=== PATIENT | female | born 1990 | race Caucasian/White ===

== ENCOUNTER → 2016-07-25 | Outpatient (REF) ==
[~2016-07-25] MED LIST: MOTRIN 800800 MG/TAB PO; PERCOCET 325 MG1 TA2 PO; PRENATAL1 TA1 PO; SLOW FE45 MG PO
== END ==
LOC: WSOH 09:48
DX: Z02.89 Encounter for other administrative examinations (principal)

== ENCOUNTER → 2017-01-31 | Outpatient (REF) | LOC: WSOH 12:43 | DX: Z02.89 Encounter for other administrative examinations (principal) ==

== ENCOUNTER → 2017-01-31 | Outpatient (REF) | LOC: WSOH 12:43 | DX: Z00.00 Encounter for general adult medical examination without abnormal findings (principal) ==

== ENCOUNTER 2018-01-02 07:32 | Inpatient (IN) | payer BC ==
[~2018-01-02] VITALS: Ht 177.8 cm; Wt 95.0 kg
[2018-01-02] VITALS (45 sets, daily range): BP systolic 98–135; BP diastolic 50–72; PULSE 56–91; TEMP 97.6–98.6
[~2018-01-02 07:32] MED LIST changes: +NATURAL IRON65 MG PO; +VALTREX1 GM PO
[2018-01-02 08:43] LABS: BASO % 0.2 % (0.0-2.0); EOS # 0.1 (0.0-0.7); EOS % 0.5 % (0-4.0); GRAN # 7.9 (1.4-6.5); GRAN % 72.1 % (42.2-75.2); HEMOGLOBIN 11.2 g/dl (12.5-16.0); LYMPH # 2.1 (1.2-3.4); LYMPH % 18.9 % (20.0-51.0); MEAN CELL VOLUME 95 fl (80.0-100.0); MEAN CORPUSCULAR HEMOGLOBIN 32 pg (27.0-31.0); MEAN CORPUSCULAR HGB CONC 34 g/dl (33.0-37.0); MEAN PLATELET VOLUME 10.7 fl (7.4-10.4); MONO # 0.8 (0.1-0.6); MONO % 7.7 % (1.7-9.3); PLATELET COUNT 206 K/mm3 (130-400); RED BLOOD COUNT 3.52 M/mm3 (4.10-5.30); REDCELL DISTRIBUTION WIDTH-CV 13.1 % (11.5-14.5)
[2018-01-02 08:57] LABS: HEMATOCRIT 33.3 % (37.0-47.0)
[2018-01-03 02:45] VITALS: BP 120/72; PULSE 63; TEMP 97.8
[2018-01-03 08:05] VITALS: BP 134/63; PULSE 71; TEMP 97.9
[2018-01-03] MEDS ORDERED: IBU800 M1 PO (08:46)
[2018-01-03] MEDS ORDERED: PERCOCET 325 MG1 TA2 PO (10:36)
[2018-01-03 15:53] VITALS: BP 128/64; PULSE 75; TEMP 98.6
[2018-01-03 20:00] VITALS: BP 130/72; PULSE 79; TEMP 97.7
[2018-01-04 06:45] VITALS: BP 116/63; PULSE 86; TEMP 98.4
[2018-01-04] MEDS ORDERED: PERCOCET 325 MG1 TA2 PO (08:28)
[2018-01-04] MEDS ORDERED: IBU800 M1 PO (08:28)
== END 2018-01-04 11:25 | disposition home or self-care (01) | DRG 774 ==
LOC: LDR 07:32 → OB 20:05
PROVIDERS: Obstetrics & Gynecology
PROC: 10E0XZZ Delivery of Products of Conception, External Approach (ICD-10-PCS; principal; 2018-01-02)
PROC: 3E033VJ Introduction of Other Hormone into Peripheral Vein, Percutaneous Approach (ICD-10-PCS; 2018-01-02)
DX: O75.89 Other specified complications of labor and delivery (principal); O98.52 Other viral diseases complicating childbirth; Z37.0 Single live birth; Z3A.39 39 weeks gestation of pregnancy
CPT/HCPCS: J1200; J2590; J2795; J7120

== ENCOUNTER 2019-10-04 00:03 | Inpatient (IN) | payer BC ==
[~2019-10-04] VITALS: Ht 172.7 cm; Wt 98.6 kg
[2019-10-04] VITALS (55 sets, daily range): BP systolic 104–147; BP diastolic 54–90; PULSE 59–96; TEMP 97.4–98.3
[~2019-10-04 00:03] MED LIST changes: +IBU800 M1 PO
[2019-10-04 00:56] LABS: BASO % 0.2 % (0.0-2.0); EOS # 0.1 (0.0-0.7); EOS % 0.6 % (0-4.0); GRAN # 7.5 (1.4-6.5); GRAN % 68.5 % (42.2-75.2); HEMOGLOBIN 11.3 g/dl (12.5-16.0); LYMPH # 2.4 (1.2-3.4); LYMPH % 21.7 % (20.0-51.0); MEAN CELL VOLUME 90 fl (80.0-100.0); MEAN CORPUSCULAR HEMOGLOBIN 30 pg (27.0-31.0); MEAN CORPUSCULAR HGB CONC 34 g/dl (33.0-37.0); MEAN PLATELET VOLUME 10.9 fl (7.4-10.4); MONO # 0.9 (0.1-0.6); MONO % 8.4 % (1.7-9.3); PLATELET COUNT 192 K/mm3 (130-400); RED BLOOD COUNT 3.72 M/mm3 (4.10-5.30); REDCELL DISTRIBUTION WIDTH-CV 13.1 % (11.5-14.5)
[2019-10-04 01:01] LABS: HEMATOCRIT 33.6 % (37.0-47.0)
--- NOTE | 2019-10-04 02:00 | NUR ---
0000- Patient to LR4 by wheelchair with , Herson. Patient and spouse oriented to labor room. Patient into restroom to void and change into clean gown. 0007- EFM and TOCO on and tracing. Patient reports SROM at 2230. Patient states there was a large amount of clear, odorless fluid. Patient reports good movement. Patient denies bleeding or spotting. 0010- SVE 50/-3 by this RN. Patient appears grossly ruptured with clear fluid. Amniotest inconclusive. endoscope technician, Ismael notified. Assessment completed. 0015- See Physician Notification. 0030- IV started. Labs drawn and sent. LR infusing. Plan of care discussed. Patient does not want to start Pitocin augmentation until morning because she wants to rest. Explained 's suggestion and answered all questions. Will continue to monitor and recheck SVE at 0200 and determine plan of care. 0040- Early/Late deceleration noted with FHR into the 100's. IV bolus started. Patient repositioned LL. 0046- Subtle late deceleration noted with FHR into 110's and recovers without interventions. 0125- Subtle late deceleration noted with FHR into 110's and recovers without interventions. 0200- Patient asleep. 0225- SVE /-2 by this RN. Plan of care discussed per 's suggestion. Patient agrees to Pitocin augmentation. 0230- Pitocin started at 2mU per protocol.
--- NOTE | 2019-10-04 06:00 | NUR ---
0400- Recurrent early decelerations noted. Patient repostioned. FHR strip reviewed with KEITH Maza. 0500- Subtle deceleration with FHR into 110's for 120 seconds. FHR recovered to baseline without interventions. 0515- RN at bedside palpating contractions. Contractions are firm and occuring every 2-3 minutes. 0555- SVE 2-3/60/-2 by this RN. Patient repositioned to sitting upright on birthing ball at edge of bed per her request.
--- NOTE | 2019-10-04 06:30 | NUR ---
Report received, care assumed. Patient on birthing ball, tense and breathing through contractions. She denies the need for the epidural at this time. Plan of care reviewed.
--- NOTE | 2019-10-04 08:00 | NUR ---
Patient more uncomfortable with contractions and request epidural. IVF bolus started, BENDING ROLL OPERATOR notified.
--- NOTE | 2019-10-04 08:42 | NUR ---
0830 OZZY Cisneros to room to place epidural. 0842 Test dose - see anesthesia record for details of procedure.
--- NOTE | 2019-10-04 11:35 | NUR ---
1110 Patient c/o feeling vaginal pressure. SVE 6/90/-1. 1120 FHR down to 100 bpm over 2 minutes. SVE 9/100/+1. Dr. Arnold called for delivery. 1130 Dr. Arnold to patient room, SVE complete, patient prepped for delivery. 1135 Spontaneous vaginal delivery of viable male infant by Dr. Arnold. Cord clamped and cut and infant to the care of the nursery RN. 1141 Spontaneous delivery of placenta by Dr. Arnold. Pitocin started at 333ml/hr per orders and protocol. Fundus firm, lochia WNL, perineum intact.
[2019-10-05 00:15] VITALS: BP 115/77; PULSE 92
[2019-10-05 07:49] VITALS: BP 112/70; PULSE 78; TEMP 98.2
[2019-10-05] MEDS ORDERED: PERCOCET 325 MG1 TA2 PO (10:25)
[2019-10-05] MEDS ORDERED: IBU800 M1 PO (10:25)
== END 2019-10-05 15:20 | disposition home or self-care (01) | DRG 806 ==
LOC: LDRO 00:03 → LDR 00:44 → OB 14:00
PROVIDERS: ADMIT Obstetrics & Gynecology
PROC: 10E0XZZ Delivery of Products of Conception, External Approach (ICD-10-PCS; principal; 2019-10-04)
DX: O42.92 Full-term premature rupture of membranes, unspecified as to length of time between rupture and onset of labor (principal); O98.52 Other viral diseases complicating childbirth; Z37.0 Single live birth; B00.9 Herpesviral infection, unspecified; O99.344 Other mental disorders complicating childbirth; F32.9 Major depressive disorder, single episode, unspecified; F41.9 Anxiety disorder, unspecified; Z3A.39 39 weeks gestation of pregnancy
CPT/HCPCS: J1200; J2590; J7120